=== PATIENT | female | born 1945 | race Caucasian/White ===

== ENCOUNTER 2019-11-26 18:23 | Inpatient (IN) | payer MEDICARE, OTHER ==
[~2019-11-26] VITALS: Ht 162.6 cm; Wt 84.8 kg
[2019-11-26 19:39] LABS: BASOPHILS % (AUTO) 0.4 % (0.0-2.0); EOSINOPHILS % (AUTO) 2.6 % (1.0-6.0); HEMATOCRIT 32.1 % (36-46); LYMPHOCYTES % (AUTO) 32.2 % (22.0-44.0); MEAN CORPUSCULAR HEMOGLOBIN 23.5 pg (26.0-34.0); MEAN CORPUSCULAR HGB CONC 31.3 G/dL (31.0-37.0); MEAN CORPUSCULAR VOLUME 75 fL (80-100); MONOCYTES # (AUTO) 0.5 K/uL (0.1-1.0); MONOCYTES % (AUTO) 8.6 % (2.0-9.0); NEUTROPHILS # (AUTO) 3.4 K/uL (1.8-7.7); NEUTROPHILS % (AUTO) 56.2 % (40.0-70.0); PLATELET COUNT (AUTO) 240 K/uL (150-450); RED BLOOD CELL COUNT(AUTO) 4.26 MIL/uL (4.00-5.20); RED CELL DISTRIBUTION WIDTH 18.1 % (11.5-14.5)
[2019-11-26 19:55] LABS: ANION GAP 11 mmol/L (8-16); CALCIUM, TOTAL 9.8 mg/dL (8.8-10.5); CARBON DIOXIDE 26 mmol/L (22-29); CHLORIDE 105 mmol/L (98-107); CREATININE 0.91 mg/dL (0.60-1.30); GLOMERULAR FILTR. RATE CALC 60 mL/min (>60); GLUCOSE,RANDOM 101 mg/dL (70-110); POTASSIUM 3.5 mmol/L (3.5-5.1); SODIUM SERUM 142 mmol/L (136-145); UREA NITROGEN, BLOOD 13 mg/dL (7-18)
[2019-11-26 20:01] LABS: ALANINE AMINOTRANSFERASE 24 U/L (12-78); ALBUMIN 4.5 g/dL (3.4-5.0); ALKALINE PHOSPHATASE 67 U/L (46-116); ASPARTATE AMINOTRANSFERASE 23 U/L (15-37); BILIRUBIN,TOTAL 0.5 mg/dL (0.1-1.0); TOTAL PROTEIN, SERUM 8.3 g/dL (6.4-8.2)
[2019-11-26 20:15] LABS: AMPHET/METH SCREEN,URINE POSITIVE (NEGATIVE); BARBITURATE SCREEN, URINE NEGATIVE (NEGATIVE); BENZODIAZEPINES SCREEN,URINE NEGATIVE (NEGATIVE); CANNABINOID SCREEN,URINE POSITIVE (NEGATIVE); COCAINE SCREEN,URINE NEGATIVE (NEGATIVE); METHADONE SCREEN, URINE NEGATIVE (NEGATIVE); OPIATE SCREEN,URINE NEGATIVE (NEGATIVE)
[2019-11-26 20:32] LABS: PHENCYCLIDINE SCREEN,URINE NEGATIVE (NEGATIVE)
[2019-11-27] MEDS ORDERED: HALOPERIDOL 5 MG TABLET PO PRN (02:30)
[2019-11-27] MEDS ORDERED: LORazepam 2 MG TABLET PO PRN (02:30)
[2019-11-27] MEDS ORDERED: ZOLPIDEM TARTRATE 10 MG TABLET PO PRN (02:30)
[2019-11-27 04:33] LABS: APPEARANCE,URINE TURBID (CLEAR); BILIRUBIN,URINE NEGATIVE (NEGATIVE); GLUCOSE, URINE (UA) NEGATIVE (NEGATIVE); KETONES,URINE NEGATIVE (NEGATIVE); LEUKOCYTE ESTERASE ,URINE SMALL (NEGATIVE); NITRATE,URINE POSITIVE (NEGATIVE); OCCULT BLOOD,URINE NEGATIVE (NEGATIVE); PH,URINE 5.5 (5.0-8.0); PROTEIN,URINE NEGATIVE (NEGATIVE); UROBILINOGEN,URINE 0.2 mg/dL (<=1.0)
[2019-11-27 04:45] LABS: RBC,URINE None Seen /HPF (0-2)
[2019-11-27 04:46] LABS: AMORPHOUS SEDIMENT,UR Many /LPF (None Seen); BACTERIA,URINE Many /HPF (None Seen); CALCIUM OXALATE CRYSTALS,UR Moderate /LPF (None Seen); YEAST,URINE None Seen /HPF (None Seen)
[2019-11-27 05:15] VITALS: BP 150/96
[2019-11-27 09:17] VITALS: BP 145/99
[2019-11-27] MEDS: FLUoxetine HCL 20 MG CAPSULE PO SCH (09:39)
[2019-11-27] MEDS ORDERED: ACETAMINOPHEN 325 MG TABLET PO PRN (12:30)
[2019-11-27] MEDS ORDERED: IBUPROFEN 400 MG TABLET PO PRN (12:30)
[2019-11-27] MEDS ORDERED: ALBUTEROL SULFATE HFA 90 MCG/PUFF 8 GM INHALER IH PRN (12:30)
[2019-11-27] MEDS ORDERED: DOCUSATE SODIUM 100 MG CAPSULE PO PRN (12:30)
[2019-11-27] MEDS ORDERED: PETROLATUM,WHITE 28 GM JELLY TP PRN (12:30)
[2019-11-27] MEDS ORDERED: NICOTINE 14 MG/24 HOUR PATCH TD PRN (12:30)
[2019-11-27] MEDS ORDERED: LOPERAMIDE HCL 2 MG CAPSULE PO PRN (12:30)
[2019-11-27] MEDS ORDERED: CloNIDine HCL 0.1 MG TABLET PO PRN (12:30)
[2019-11-27] MEDS ORDERED: MAG HYDROX/AL HYDROX/SIMETH ES 30 ML SUSPENSION UDCUP PO PRN (12:30)
[2019-11-27] MEDS ORDERED: ONDANSETRON HCL 4 MG TABLET PO PRN (12:30)
[2019-11-27] MEDS ORDERED: MAGNESIUM HYDROXIDE SUSPENSION 30 ML UDCUP PO PRN (12:30)
[2019-11-27] MEDS ORDERED: GuaiFENesin/D-METHORPHAN [SUGAR-FREE] 200-20MG/10 ML SYRUP UDCUP PO PRN (12:30)
[2019-11-27] MEDS: CEPHALEXIN MONOHYDRATE 250 MG CAPSULE PO SCH (16:18)
[2019-11-27 17:58] VITALS: BP 151/93
[2019-11-28] MEDS: CEPHALEXIN MONOHYDRATE 250 MG CAPSULE PO SCH ×3 (00:57→16:22)
[2019-11-28 04:30] VITALS: BP 160/95
[2019-11-28 08:03] LABS: CHOL/HDL RATIO 4.7 (3.9-5.7)
[2019-11-28 09:00] VITALS: BP 134/74
[2019-11-28] MEDS: FLUoxetine HCL 20 MG CAPSULE PO SCH (09:15)
[2019-11-28] MEDS: TraZODone HCL 50 MG TABLET PO SCH (20:13)
[2019-11-28 20:43] VITALS: BP 137/77
[2019-11-29] MEDS: CEPHALEXIN MONOHYDRATE 250 MG CAPSULE PO SCH ×3 (00:02→16:00)
[2019-11-29 08:00] VITALS: BP 166/101
[2019-11-29] MEDS: FLUoxetine HCL 20 MG CAPSULE PO SCH (08:33)
[2019-11-29 18:50] VITALS: BP 140/93
[2019-11-29] MEDS: TraZODone HCL 50 MG TABLET PO SCH (20:35)
[2019-11-30 09:13] VITALS: BP 144/84
[2019-11-30] MEDS: CEPHALEXIN MONOHYDRATE 250 MG CAPSULE PO SCH ×3 (09:37→16:28)
[2019-11-30] MEDS: FLUoxetine HCL 20 MG CAPSULE PO SCH (09:38)
[2019-11-30 16:35] VITALS: BP 142/86
[2019-11-30] MEDS: TraZODone HCL 50 MG TABLET PO SCH (21:28)
[2019-12-01] MEDS: CEPHALEXIN MONOHYDRATE 250 MG CAPSULE PO SCH ×4 (00:38→16:08)
[2019-12-01] MEDS: FLUoxetine HCL 20 MG CAPSULE PO SCH (08:24)
[2019-12-01 08:30] VITALS: BP 135/76
[2019-12-01] MEDS ORDERED: CEPH250 PO (09:01)
[2019-12-01] MEDS ORDERED: FLUO-191 PO (09:02)
[2019-12-01] MEDS ORDERED: TRAZ-252 PO (09:03)
== END 2019-12-01 17:00 | disposition home or self-care (01) | DRG 881 ==
LOC: EMS 18:33 → 3EI 11-27 02:00
PROVIDERS: ADMIT Psychiatry & Neurology Psychiatry; ATTEND Psychiatry & Neurology Psychiatry
DX: F32.9 Major depressive disorder, single episode, unspecified (principal); N39.0 Urinary tract infection, site not specified; R45.851 Suicidal ideations; F12.90 Cannabis use, unspecified, uncomplicated; D64.9 Anemia, unspecified
CPT/HCPCS: 87086; G0480